=== PATIENT | female | born 1960 | race African-American/Black ===

== ENCOUNTER → 2016-05-27 | Outpatient (CLI) | payer OTHER ==
[~2016-05-27] MED LIST: ALDACTONE 25MG25 M1 PO; ALDACTONE50 MG PO; ALLEGRA 180MG180 MG PO; ALLEGRA ALLERG180 MG PO; AMBIEN5 MG PO; ANTIVERT 25MG25 MG PO; ASPIRIN 81M81 MG/TA2 PO; ASPRIN; AUGMENTIN; BIOTIN10000 MC1 PO; CALCIUM + D 6001 TA1 PO; CALCIUM 600MG+D1 TAB PO; CARDI-OMEGA1000 MG PO; CARDIZEM CD 18180 MG PO; CELEBREX200 MG PO; CELLCEPT500 MG PO; CYMBALTA 60MG60 MG PO; CYMBALTA30 MG PO; DITROPAN 5MG TAB5 MG PO; DULERA1 ARO IH; EPI-PEN1 MG/ML MR; EPIPEN 2-PAK1 MG/ML IM; FIORICET 325 MG1 TA1 PO; FLONASE NASAL S16 GM NS; FLONASEALLERGY NS; FOLIC ACID 11 MG/TA1 PO; HCTZ 25MG25 MG PO; IRON PILLS; JANUVIA50 MG PO; K-DUR 10 MEQ T10 MEQ PO; KENALOG DENTAL P5 GM DT; KETOROLAC10 MG PO; KRILL OIL 5001 EACH PO; LASIX 20MG TABL20 MG PO; LEADER NATURA500 MCG PO; LIDODERM 5% PATC1 EA TP; LIPITOR 40MG TA40 MG PO; LISINOPRIL/HCTZ1 TA2 PO; LORTAB 5/500 501 TAB PO; LYRICA 50MG CAP50 MG PO; MAG-OX 400400 MG/TAB PO; MELAT3MGTAB PO; MELATONIN FORTE3 MG PO; MELATONIN3 MG PO; MELOXICAM; MERIBIN5 MG PO; METHOTREXA2.5 MG/TAB PO; MICRO-K 10 EXT10 MEQ PO; MIDRIN 325 MG-11 CAP PO; MIRALAX PA17 GM/Dose PO; NASONEX SPRAY17 GM NS; NEURONTIN300 MG PO; NEURONTIN300 MG/CAP PO; NEXIUM 40MG40 MG PO; NORCO 325 MG-51 TAB PO; OXYCODONE HCL; PHENERGAN W/CO120 ML PO; PLAQUENIL 200M200 MG PO; PREDNISONE 2.52.5 MG PO; PREDNISONE 5MG5 MG PO; PREDNISONE10 MG PO; PREDNISONE20 MG PO; PREMARIN VAG42.5 GM VG; PROVENTIL0.09 MG/A1 IH; REFRESH 1 ML1 ML OU; REGLAN 10MG10 MG/TAB; REGLAN 10MG10 MG/TAB PO; SOME CHOLESTEROL MED; ST. JOSEPH81 M2 PO; TIAZAC180 MG PO; TOPAMAX 100MG100 M1 PO; TOPROL XL 25MG25 MG PO; TUSS PO; TYLENOL 325MG325 MG PO; ULTRAM 50MG TAB50 MG PO; VITAMIN B125000 MCG PO; VOLTAREN GEL 1%1 TU TP; ZANAFLEX 4MG TAB4 MG PO; ZANAFLEX CAPSULE6 MG PO; ZOCOR 40MG40 MG PO
== END ==
LOC: COL.CARD 09:19
DX: R07.89 Other chest pain (principal)

== ENCOUNTER 2016-10-31 18:08 | Emergency (ER) | payer OTHER ==
[~2016-10-31] VITALS: Ht 162.6 cm; Wt 103.2 kg
[~2016-10-31 18:08] MED LIST changes: -ALDACTONE50 MG PO; -ALLEGRA 180MG180 MG PO; -ASPIRIN 81M81 MG/TA2 PO; -CALCIUM 600MG+D1 TAB PO; -CARDIZEM CD 18180 MG PO; -CYMBALTA 60MG60 MG PO; -EPIPEN 2-PAK1 MG/ML IM; -FLONASE NASAL S16 GM NS; -LEADER NATURA500 MCG PO; -MELAT3MGTAB PO; -MERIBIN5 MG PO; -MICRO-K 10 EXT10 MEQ PO; -TIAZAC180 MG PO
[2016-10-31 18:12] VITALS: BP 146/81; TEMP 98.2
[2016-10-31] MEDS ORDERED: TIAZAC180 MG PO (18:45)
[2016-10-31] MEDS ORDERED: CYMBALTA 60MG60 MG PO (18:47)
[2016-10-31] MEDS ORDERED: LIDODERM 5% PATC1 EA TP (18:49)
[2016-10-31] MEDS ORDERED: MELATONIN3 MG PO (18:50)
[2016-10-31 19:13] VITALS: PULSE 82
== END 2016-10-31 19:13 | disposition home or self-care (01) ==
LOC: COL.ER 18:08
DX: R07.9 Chest pain, unspecified (principal); I10 Essential (primary) hypertension; G43.909 Migraine, unspecified, not intractable, without status migrainosus; M35.9 Systemic involvement of connective tissue, unspecified; F32.9 Major depressive disorder, single episode, unspecified; I73.00 Raynaud's syndrome without gangrene; M35.00 Sjogren syndrome, unspecified

== ENCOUNTER 2016-11-11 09:56 | Day surgery (SDC) | payer OTHER ==
[2016-11-11] VITALS (9 sets, daily range): BP systolic 97–140; BP diastolic 7–73; PULSE 66–78; TEMP 97.7
[~2016-11-11 09:56] MED LIST changes: +CYMBALTA 60MG60 MG PO; +TIAZAC180 MG PO
[2016-11-11 10:27] LABS: HEMATOCRIT 38.3 % (37.0-47.0); HEMOGLOBIN 13.2 g/dl (12.5-16.0); MEAN CELL VOLUME 95 fl (80.0-100.0); MEAN CORPUSCULAR HEMOGLOBIN 33 pg (27.0-31.0); MEAN CORPUSCULAR HGB CONC 35 g/dl (33.0-37.0); MEAN PLATELET VOLUME 9.6 fl (7.4-10.4); PLATELET COUNT 269 K/mm3 (130-400); RED BLOOD COUNT 4.05 M/mm3 (4.10-5.30); REDCELL DISTRIBUTION WIDTH-CV 13.7 % (11.5-14.5)
[2016-11-11 10:31] LABS: INR 1.1 (0.8-3.0); PROTHROMBIN TIME 12.5 SECONDS (9.7-12.8)
[2016-11-11 10:43] LABS: CALCIUM 9.7 mg/dL (8.4-10.2); CREATININE, serum 1.38 mg/dL (0.52-1.25); POTASSIUM 4.1 mmol/L (3.4-5.0)
[2016-11-11] MEDS ORDERED: TYLENOL 325MG325 MG PO (11:13)
[2016-11-11] MEDS ORDERED: PROVENTIL0.09 MG/A1 IH (11:14)
[2016-11-11] MEDS ORDERED: ASPIRIN 81M81 MG/TA2 PO (11:15)
[2016-11-11] MEDS ORDERED: LIPITOR 40MG TA40 MG PO (11:16)
[2016-11-11] MEDS ORDERED: MERIBIN5 MG PO (11:17)
[2016-11-11] MEDS ORDERED: CALCIUM 600MG+D1 TAB PO (11:17)
[2016-11-11] MEDS ORDERED: PREMARIN VAG42.5 GM VG (11:19)
[2016-11-11] MEDS ORDERED: LEADER NATURA500 MCG PO (11:19)
[2016-11-11] MEDS ORDERED: CARDIZEM CD 18180 MG PO (11:20)
[2016-11-11] MEDS ORDERED: VOLTAREN GEL 1%1 TU TP (11:20)
[2016-11-11] MEDS ORDERED: CYMBALTA 60MG60 MG PO (11:20)
[2016-11-11] MEDS ORDERED: EPIPEN 2-PAK1 MG/ML IM (11:21)
[2016-11-11] MEDS ORDERED: NEXIUM 40MG40 MG PO (11:21)
[2016-11-11] MEDS ORDERED: ALLEGRA 180MG180 MG PO (11:22)
[2016-11-11] MEDS ORDERED: FLONASE NASAL S16 GM NS (11:22)
[2016-11-11] MEDS ORDERED: LASIX 20MG TABL20 MG PO (11:24)
[2016-11-11] MEDS ORDERED: FOLIC ACID 11 MG/TA1 PO (11:24)
[2016-11-11] MEDS ORDERED: PLAQUENIL 200M200 MG PO (11:25)
[2016-11-11] MEDS ORDERED: NORCO 325 MG-51 TAB PO (11:25)
[2016-11-11] MEDS ORDERED: KRILL OIL 5001 EACH PO (11:26)
[2016-11-11] MEDS ORDERED: LIDODERM 5% PATC1 EA TP (11:27)
[2016-11-11] MEDS ORDERED: MAG-OX 400400 MG/TAB PO (11:28)
[2016-11-11] MEDS ORDERED: ANTIVERT 25MG25 MG PO (11:28)
[2016-11-11] MEDS ORDERED: MELAT3MGTAB PO (11:29)
[2016-11-11] MEDS ORDERED: METHOTREXA2.5 MG/TAB PO (11:30)
[2016-11-11] MEDS ORDERED: MIRALAX PA17 GM/Dose PO (11:30)
[2016-11-11] MEDS ORDERED: PREDNISONE 5MG5 MG PO (11:31)
[2016-11-11] MEDS ORDERED: MICRO-K 10 EXT10 MEQ PO (11:31)
[2016-11-11] MEDS ORDERED: LYRICA 50MG CAP50 MG PO (11:31)
[2016-11-11] MEDS ORDERED: JANUVIA50 MG PO (11:32)
[2016-11-11] MEDS ORDERED: ALDACTONE50 MG PO (11:32)
[2016-11-11] MEDS ORDERED: ZANAFLEX 4MG TAB4 MG PO (11:33)
[2016-11-11] MEDS ORDERED: TOPAMAX 100MG100 M1 PO (11:34)
[2016-11-11] MEDS ORDERED: ULTRAM 50MG TAB50 MG PO (11:35)
== END 2016-11-11 19:31 | disposition home or self-care (01) ==
LOC: COL.CAR 09:56
PROVIDERS: Internal Medicine Cardiovascular Disease
DX: R06.00 Dyspnea, unspecified (principal); R07.89 Other chest pain
CPT/HCPCS: C1725; C1760; C1769; C1894; J2250; J3010; Q9967

== ENCOUNTER 2016-11-12 09:00 | Emergency (ER) | payer OTHER ==
[~2016-11-12] VITALS: Ht 162.6 cm; Wt 103.2 kg
[~2016-11-12 09:00] MED LIST changes: +ALDACTONE50 MG PO; +ALLEGRA 180MG180 MG PO; +ASPIRIN 81M81 MG/TA2 PO; +CALCIUM 600MG+D1 TAB PO; +CARDIZEM CD 18180 MG PO; +EPIPEN 2-PAK1 MG/ML IM; +FLONASE NASAL S16 GM NS; +LEADER NATURA500 MCG PO; +MELAT3MGTAB PO; +MERIBIN5 MG PO; +MICRO-K 10 EXT10 MEQ PO
[2016-11-12 09:02] VITALS: BP 137/77; PULSE 86; TEMP 98.1
== END 2016-11-12 09:38 | disposition home or self-care (01) ==
LOC: COL.ER 09:00
DX: Z48.812 Encounter for surgical aftercare following surgery on the circulatory system (principal); Z48.01 Encounter for change or removal of surgical wound dressing; I10 Essential (primary) hypertension

== ENCOUNTER 2017-09-28 11:19 | Outpatient (RCR) | payer OTHER | END 2017-12-27 | disposition home or self-care (01) | LOC: MKS.ESL.PT | DX: G62.9 Polyneuropathy, unspecified (principal) ==

== ENCOUNTER 2017-10-19 10:00 | Outpatient (RCR) | payer OTHER | END 2017-12-27 | disposition still patient (30) | LOC: MKS.ESL.PT | DX: G62.9 Polyneuropathy, unspecified (principal) ==

== ENCOUNTER 2019-03-07 11:00 | Outpatient (RCR) | payer OTHER | END 2019-04-30 | disposition home or self-care (01) | LOC: WSPT | DX: M25.569 Pain in unspecified knee (principal) ==

== ENCOUNTER → 2019-09-13 | Outpatient (CLI) | payer OTHER | LOC: COL.RAD 12:20 | DX: R60.0 Localized edema (principal); M77.32 Calcaneal spur, left foot; G89.29 Other chronic pain ==

== ENCOUNTER → 2019-12-19 | Outpatient (CLI) | payer MEDICARE, OTHER | LOC: COL.RAD 13:00 | DX: M25.512 Pain in left shoulder (principal) ==

== ENCOUNTER → 2019-12-25 | Outpatient (CLI) | payer MEDICARE, OTHER | LOC: COL.RAD 13:00 | DX: M25.512 Pain in left shoulder (principal) | CPT/HCPCS: J3301; Q9967 ==

== ENCOUNTER 2020-12-18 13:30 | Outpatient (RCR) | payer MEDICARE, OTHER | END 2021-02-13 | LOC: WSOT | DX: G56.01 Carpal tunnel syndrome, right upper limb (principal); G56.92 Unspecified mononeuropathy of left upper limb ==

== ENCOUNTER → 2021-11-25 | Outpatient (CLI) | payer MEDICARE, OTHER | LOC: COL.RAD 12:59 | DX: K21.9 Gastro-esophageal reflux disease without esophagitis (principal) ==

== ENCOUNTER → 2022-08-31 | Outpatient (CLI) | payer MEDICARE, OTHER ==
[~2022-08-31] MED LIST changes: +TAMIFLU 75MG75 MG PO; +TESSALON PERLE200 MG PO
== END ==
LOC: MHCPAIN 11:35
DX: M25.562 Pain in left knee (principal); M76.61 Achilles tendinitis, right leg; M35.1 Other overlap syndromes; G89.4 Chronic pain syndrome
CPT/HCPCS: G0463

== ENCOUNTER → 2023-01-22 | Outpatient (CLI) | payer MEDICARE, OTHER | LOC: MHCPAIN 15:36 | DX: M25.561 Pain in right knee (principal); M17.11 Unilateral primary osteoarthritis, right knee; M35.1 Other overlap syndromes; G89.4 Chronic pain syndrome | CPT/HCPCS: G0463 ==

== ENCOUNTER → 2023-02-17 | Outpatient (CLI) | payer MEDICARE, OTHER | LOC: MHCPAIN 14:38 | DX: M17.11 Unilateral primary osteoarthritis, right knee (principal); M25.561 Pain in right knee; M25.562 Pain in left knee; M53.3 Sacrococcygeal disorders, not elsewhere classified; M35.1 Other overlap syndromes; G89.4 Chronic pain syndrome | CPT/HCPCS: G0463 ==

== ENCOUNTER → 2023-03-01 | Outpatient (CLI) | payer MEDICARE, OTHER | LOC: MHCPAIN 14:10 | DX: M17.11 Unilateral primary osteoarthritis, right knee (principal) | CPT/HCPCS: J3301 ==

== ENCOUNTER → 2023-04-06 | Outpatient (CLI) | payer MEDICARE, OTHER | LOC: MHCPAIN 11:49 | DX: M17.0 Bilateral primary osteoarthritis of knee (principal); M25.561 Pain in right knee; M25.562 Pain in left knee | CPT/HCPCS: G0463 ==

== ENCOUNTER → 2023-06-08 | Outpatient (CLI) | payer MEDICARE, OTHER ==
[~2023-06-08] MED LIST changes: +Lidocaine PF 1% (10 MG/ML) 5 ML VIAL ONE; +Triamcinolone 40 MG/ML 1 ML VIAL ONE
== END ==
LOC: MHCPAIN 11:39
DX: M17.11 Unilateral primary osteoarthritis, right knee (principal); M25.561 Pain in right knee
CPT/HCPCS: J3301

== ENCOUNTER → 2023-07-27 | Outpatient (CLI) | payer MEDICARE, OTHER ==
[~2023-07-27] MED LIST changes: -Lidocaine PF 1% (10 MG/ML) 5 ML VIAL ONE; -Triamcinolone 40 MG/ML 1 ML VIAL ONE
== END ==
LOC: MHCPAIN 10:22
DX: M17.11 Unilateral primary osteoarthritis, right knee (principal); M25.561 Pain in right knee; M25.562 Pain in left knee
CPT/HCPCS: G0463

== ENCOUNTER → 2023-09-14 | Outpatient (CLI) | payer MEDICARE, OTHER ==
[~2023-09-14] MED LIST changes: +Lidocaine PF 1% (10 MG/ML) 5 ML VIAL ONE; +Triamcinolone 40 MG/ML 1 ML VIAL ONE
== END ==
LOC: MHCPAIN 10:12
DX: M17.11 Unilateral primary osteoarthritis, right knee (principal); M25.561 Pain in right knee
CPT/HCPCS: J3301

== ENCOUNTER → 2023-11-16 | Outpatient (CLI) | payer MEDICARE, OTHER ==
[~2023-11-16] MED LIST changes: -Lidocaine PF 1% (10 MG/ML) 5 ML VIAL ONE; -Triamcinolone 40 MG/ML 1 ML VIAL ONE
== END ==
LOC: MHCPAIN 10:17
DX: M17.11 Unilateral primary osteoarthritis, right knee (principal); M79.18 Myalgia, other site; M35.1 Other overlap syndromes
CPT/HCPCS: G0463

== ENCOUNTER → 2024-01-04 | Outpatient (CLI) | payer MEDICARE, OTHER ==
[~2024-01-04] MED LIST changes: +Lidocaine PF 1% (10 MG/ML) 5 ML VIAL ONE; +Triamcinolone 40 MG/ML 1 ML VIAL ONE
== END ==
LOC: MHCPAIN 10:40
DX: M17.11 Unilateral primary osteoarthritis, right knee (principal); M25.561 Pain in right knee
CPT/HCPCS: G0463; J3301